=== PATIENT | male | born 1990 | race Caucasian/White ===

== ENCOUNTER 2018-04-29 07:14 | Emergency (ER) | payer BC ==
[~2018-04-29] VITALS: Ht 180.3 cm; Wt 113.0 kg
[2018-04-29] MEDS ORDERED: LEVE10006 MT (07:46)
[2018-04-29] MEDS ORDERED: LAMO25TA4 MT (07:46)
[2018-04-29] MEDS ORDERED: SODIUM CHLORIDE 0.9% 1,000 ML IV ONE (08:58)
[2018-04-29] MEDS ORDERED: LEVETIRACETAM 500MG TABLET PO ONE (09:00)
[2018-04-29] MEDS ORDERED: LEVETIRACETAM 500MG PREMIX 100 ML IV ONE (09:00)
[2018-04-29] MEDS ORDERED: ONDANSETRON HCL 4MG/2ML VIAL IV ONE (09:30)
[2018-04-29] MEDS ORDERED: KETOROLAC 30MG/ML VIAL IV ONE (09:30)
[2018-04-29 10:12] LABS: BASOPHILS % 0.3 % (0.0-2.0); EOSINOPHILS % 0.2 % (0.0-5.0); HEMATOCRIT. 45.6 % (42.0-52.0); HEMOGLOBIN. 16.1 g/dL (14.0-18.0); LYMPHOCYTES % 9.2 % (20.0-50.0); MEAN CORPUSCULAR HEMOGLOBIN 31.2 pg (28.0-32.0); MEAN CORPUSCULAR VOLUME 88.4 fL (80.0-94.0); MEAN PLATELET VOLUME 8.3 fl (7.4-10.4); MONOCYTES % 4.4 % (2.0-8.0); NEUTROPHILS % 85.9 % (40.0-76.0); PLATELET 267 x1000/uL (130-400); RED BLOOD CELL COUNT 5.16 mill/uL (4.7-6.1)
[2018-04-29 10:14] LABS: CHLORIDE 105 mEq/L (98-107)
[2018-04-29 10:17] LABS: ETHANOL BLOOD < 10 mg/dL
[2018-04-29] MEDS ORDERED: LAMOTRIGINE 25MG TABLET PO STA (10:35)
[2018-04-29 12:02] VITALS: BP 125/78
== END 2018-04-29 12:05 | disposition home or self-care (01) ==
LOC: ER 08:23
DX: R56.9 Unspecified convulsions (principal); E66.9 Obesity, unspecified; R03.0 Elevated blood-pressure reading, without diagnosis of hypertension; Z68.34 Body mass index [BMI] 34.0-34.9, adult
CPT/HCPCS: 36415; 80048; 85025; 96365; 96375; 99284; G0482; J1885; J1953; J2405; J7030

== ENCOUNTER 2020-08-24 15:22 | Emergency (ER) | payer BC, MEDICAID ==
[~2020-08-24] VITALS: Ht 180.3 cm; Wt 110.0 kg
[~2020-08-24 15:22] MED LIST: LAMO25TA9 MT; LEVE10006 MT
[2020-08-24] MEDS ORDERED: IBUPROFEN 600MG TABLET PO STA (15:40)
[2020-08-24] MEDS ORDERED: LORAZEPAM 2MG/ML CPJ IV ONE (15:45)
[2020-08-24] MEDS ORDERED: LEVETIRACETAM 500MG PREMIX 100 ML IV ONE (15:45)
[2020-08-24 16:19] LABS: BASOPHILS % 0.5 % (0.0-2.0); EOSINOPHILS % 2.8 % (0.0-5.0); HEMOGLOBIN. 15.6 g/dL (14.0-18.0); LYMPHOCYTES % 21.6 % (20.0-50.0); MEAN CORPUSCULAR HEMOGLOBIN 31.1 pg (28.0-32.0); MEAN CORPUSCULAR VOLUME 89.3 fL (80.0-94.0); MEAN PLATELET VOLUME 7.5 fl (7.4-10.4); MONOCYTES % 5.7 % (2.0-8.0); NEUTROPHILS % 69.4 % (40.0-76.0); PLATELET 266 x1000/uL (130-400); RED BLOOD CELL COUNT 5.04 mill/uL (4.7-6.1); RED CELL DISTRIBUTION WIDTH 12.7 % (11.6-14.6)
[2020-08-24 16:26] LABS: CHLORIDE 106 mEq/L (98-107)
[2020-08-24 16:30] LABS: ETHANOL BLOOD < 10 mg/dL
[2020-08-24] MEDS ORDERED: ONDANSETRON HCL 4MG/2ML INJ IV ONE (16:30)
[2020-08-24 18:07] VITALS: BP 109/72
== END 2020-08-24 18:09 | disposition home or self-care (01) ==
LOC: ER 15:22
DX: G40.909 Epilepsy, unspecified, not intractable, without status epilepticus (principal); R51.9 Headache, unspecified; F12.10 Cannabis abuse, uncomplicated; Z79.899 Other long term (current) drug therapy
CPT/HCPCS: 36415; 80053; 80320; 85025; 96374; 96375; 99284; J1953; J2060; J2405; G0480

== ENCOUNTER 2022-06-23 08:29 | Inpatient (IN) | payer MEDICAID ==
[~2022-06-23] VITALS: Ht 180.3 cm; Wt 116.6 kg
[2022-06-23 10:00] LABS: HEMATOCRIT. 51.2 % (42.0-52.0); HEMOGLOBIN. 18.2 g/dL (14.0-18.0); MEAN CORPUSCULAR HEMOGLOBIN 32.5 pg (28.0-32.0); MEAN CORPUSCULAR VOLUME 91.4 fL (80.0-94.0); MEAN PLATELET VOLUME 8.3 fl (7.4-10.4); PLATELET 293 x1000/uL (130-400); RED CELL DISTRIBUTION WIDTH 13.1 % (11.6-14.6)
[2022-06-23] MEDS ORDERED: LEVETIRACETAM 500MG PREMIX 100 ML IV ONE (10:00)
[2022-06-23 10:07] LABS: CHLORIDE 109 mEq/L (98-107)
[2022-06-23 10:52] LABS: PLATELET ESTIMATE NORMAL
[2022-06-23] MEDS ORDERED: LEVE1000 MT (11:32)
[2022-06-23] MEDS ORDERED: LAMO25TB3 MT (11:32)
[2022-06-23] MEDS ORDERED: ONDANSETRON HCL 4MG/2ML INJ IV ONE (12:15)
[2022-06-23] MEDS ORDERED: HYDROCODONE/ACETAMINOPHEN 5/325MG TABLET PO PRN (15:30)
[2022-06-23] MEDS ORDERED: GUAIFENESIN 200MG/10ML SUGAR FREE UDC PO PRN (15:30)
[2022-06-23] MEDS ORDERED: ONDANSETRON HCL 4MG/2ML INJ IV PRN (15:30)
[2022-06-23] MEDS ORDERED: CLONIDINE 0.1MG TABLET PO PRN (15:30)
[2022-06-23] MEDS ORDERED: ACETAMINOPHEN 325MG TABLET PO PRN ×2 (15:30)
[2022-06-23] MEDS ORDERED: IPRATROPIUM/ALBUTEROL 0.5-3(2.5)MG/3ML NEB NEB PRN (15:30)
[2022-06-23] MEDS ORDERED: MAGNESIUM/ALUMINUM HYDROXIDE/SIMETHICONE 30ML UDC PO PRN (15:30)
[2022-06-23] MEDS: SODIUM CHLORIDE 0.9% 1,000 ML IV SCH (15:59)
[2022-06-23 16:15] LABS: CREATINE KINASE 190 IU/L (39-308)
[2022-06-23] MEDS ORDERED: LORAZEPAM 2MG/ML CPJ IV PRN (16:19)
[2022-06-23 16:57] LABS: *AMPHETAMINES SCREEN URINE NEGATIVE (NEGATIVE); *BARBITURATES SCREEN URINE NEGATIVE (NEGATIVE); *BENZODIAZEPINES SCREEN URINE NEGATIVE (NEGATIVE); *COCAINE SCREEN URINE NEGATIVE (NEGATIVE); CANNABINOID URINE SCREEN PRESUMTIVE POSITIVE (NEGATIVE); METHADONE URINE SCREEN NEGATIVE (NEGATIVE); OPIATES URINE SCREEN NEGATIVE (NEGATIVE); PHENCYCLIDINE URINE SCREEN NEGATIVE (NEGATIVE)
[2022-06-23] MEDS: ENOXAPARIN 30MG/0.3ML SYR SUBCUT SCH (17:24)
[2022-06-23 18:50] VITALS: BP 101/54
[2022-06-23 20:00] VITALS: BP 113/62
[2022-06-24] VITALS (7 sets, daily range): BP systolic 112–120; BP diastolic 46–76
[2022-06-24] MEDS: SODIUM CHLORIDE 0.9% 1,000 ML IV SCH ×2 (05:21→17:15)
[2022-06-24] MEDS: ENOXAPARIN 30MG/0.3ML SYR SUBCUT SCH ×2 (05:21→15:55)
[2022-06-24] MEDS ORDERED: OMEPRAZOLE 20MG CAPSULE EXTENDED RELEASE PO SCH (07:10)
[2022-06-24 07:17] LABS: BASOPHILS % 0.2 % (0.0-2.0); EOSINOPHILS % 0.1 % (0.0-5.0); HEMATOCRIT. 43.5 % (42.0-52.0); HEMOGLOBIN. 15.3 g/dL (14.0-18.0); LYMPHOCYTES % 10.4 % (20.0-50.0); MEAN CORPUSCULAR HEMOGLOBIN 31.6 pg (28.0-32.0); MEAN CORPUSCULAR VOLUME 90.2 fL (80.0-94.0); MEAN PLATELET VOLUME 8.4 fl (7.4-10.4); MONOCYTES % 8.2 % (2.0-8.0); NEUTROPHILS % 81.1 % (40.0-76.0); PLATELET 259 x1000/uL (130-400); RED BLOOD CELL COUNT 4.83 mill/uL (4.7-6.1); RED CELL DISTRIBUTION WIDTH 12.9 % (11.6-14.6)
[2022-06-24 08:13] LABS: CHLORIDE 109 mEq/L (98-107)
[2022-06-24 08:19] LABS: PHOSPHORUS 2.6 mg/dL (2.5-4.9)
[2022-06-24] MEDS ORDERED: LEVE10006 PO (17:42)
[2022-06-24] MEDS ORDERED: LAMO25TA9 PO (17:42)
[2022-06-24] MEDS ORDERED: LAMOTRIGINE 25MG TABLET PO SCH (18:00)
[2022-06-24] MEDS ORDERED: LEVETIRACETAM 500MG TABLET PO SCH (18:00)
== END 2022-06-24 19:38 | disposition home or self-care (01) | DRG 53 ==
LOC: ER 08:29 → 8WST 14:17 → EDBEDREQ 14:20 → SUPCPDRO 14:46
PROVIDERS: ADMIT Internal Medicine; ATTEND Internal Medicine
DX: G40.909 Epilepsy, unspecified, not intractable, without status epilepticus (principal); F12.90 Cannabis use, unspecified, uncomplicated; R11.0 Nausea; R51.9 Headache, unspecified; Z79.899 Other long term (current) drug therapy
CPT/HCPCS: 36415; 80048; 80053; 80305; 82542; 82550; 83735; 84100; 85025; 93005; 99285; J1650; J1953; J2405